=== PATIENT | female | born 1985 | race Caucasian/White ===

== ENCOUNTER 2017-06-10 18:01 | Emergency (ER) | payer MEDICAID ==
[2016-09-02 08:51] VITALS: BMI 26.1
[~2017-06-10 18:01] MED LIST: HYDROCODON-ACE1 EAC7 PO; IBUPROFEN800 MG PO; MULTI-DAY VITAM1 TAB PO; PERCOCET 5-3251 TAB PO
== END 2017-06-10 20:00 | disposition left against medical advice (07) ==
LOC: D.ER 18:01
DX: R07.9 Chest pain, unspecified (principal)

== ENCOUNTER 2018-03-05 06:49 | Day surgery (SDC) | payer MEDICAID ==
[~2018-03-05] VITALS: Ht 162.6 cm; Wt 99.8 kg
--- NOTE | ~2018-03-05 | OP ---
PATIENT NAME: ROQUE HAMEED MEDICAL RECORD: [id number] :86 LOCATION:D.OPS ADMISSION DATE: SURGEON: ESTRADA GARCIA MD DATE OF OPERATION: 03/05/2018 SURGEON: Estrada Garcia MD ANESTHESIA: MAC by Can Putnam CRNA. PREOPERATIVE DIAGNOSIS: Interstitial cystitis. POSTOPERATIVE DIAGNOSIS: Interstitial cystitis. PROCEDURES: Cystoscopy and intravesical Rimso-50 instillation. FINDINGS: Bladder inflammation with no bladder tumors. Single ureteral orifices bilaterally. SPECIMENS: None. ESTIMATED BLOOD LOSS: None. CLINICAL HISTORY: This is a 32-year-old female, who was found by her code number stamper to have a uterine descent and cystocele. She also has stress urinary incontinence. There is suprapubic discomfort as well as nocturia times 2 and daytime frequency q.1h. She has dyspareunia also. Her symptoms are suggestive of interstitial cystitis and therefore she is scheduled for cystoscopy. Once we get the bladder inflammation symptoms controlled, then we planned to perform a hysterectomy and cystocele repair in the future as well as a pubovaginal sling in conjunction with Dr. Ledesma. She is not allergic to any medication. She was given Ancef health information coder to the OR. DESCRIPTION OF PROCEDURE: The patient was given IV sedation. She was placed in the dorsal lithotomy position and prepped and draped. A 17-Emirati cystoscope with 30-degree lens was used for visualization. She had a severe bladder inflammation, but no bladder tumors were seen. In fact, during the cystoscopy, areas of the bladder started to bleed spontaneously. She did have gross hematuria already when I entered into the bladder with the scope. The bladder was emptied through the scope and then we inserted a 16-Emirati red rubber catheter. The 50 mL of Rimso solution were then instilled into the bladder and the catheter was removed, leaving the solution in the bladder. She will keep the solution in for at least 15 minutes and then void it out. I will see her in followup next week for her to have her second treatment. TRANSINT:[id number] Voice Confirmation ID: [id number] DOCUMENT ID: [id number] ESTRADA GARCIA MD at 1305 CC: [id number] DICTATION DATE: 03/05/18 0943 TRIPLE VALVE TESTER: 03/05/18 1123 [facility] [address] [place] [address]
[~2018-03-05 06:49] MED LIST changes: +CELEXA20 MG PO; +EZFE 200200 MG PO; +MELATONIN 3 MG1 TAB PO; +NEURONTIN600 MG PO; +TYLENOL W/CODEI1 TAB PO
[2018-03-05] MEDS ORDERED: MAGNESIUM OXID250 MG PO (07:28)
[2018-03-05] MEDS ORDERED: GALZIN25 MG PO (07:29)
[2018-03-05] MEDS ORDERED: POTASSIUM99 M1 PO (07:29)
[2018-03-05 07:37] VITALS: BP 135/87; Ht 162.6 cm; Wt 99.8 kg
[2018-03-05 08:42] LABS: HEMATOCRIT 36.9 % (36.0-48.0); HEMOGLOBIN 12.5 g/dL (12-16); MCH 31.6 pg (26.0-34.0); MCHC 33.9 g/dL (31.0-37.0); MCV 93.4 fL (80.0-100.0); MEAN PLATELET VOLUME 10.1 fL (7.4-10.4); RBC 3.95 10x6/uL (4.00-5.40); WBC 6.5 10x3/uL (4.8-10.8)
== END 2018-03-05 10:45 | disposition home or self-care (01) ==
LOC: D.OPS 06:49 → D.PAN 09:00 → D.OPS 09:00
PROVIDERS: Anesthesiology
DX: N30.10 Interstitial cystitis (chronic) without hematuria (principal); F17.200 Nicotine dependence, unspecified, uncomplicated; Z01.812 Encounter for preprocedural laboratory examination

== ENCOUNTER 2018-03-12 15:04 | Day surgery (SDC) | payer MEDICAID ==
[~2018-03-12] VITALS: Ht 162.6 cm; Wt 98.4 kg
--- NOTE | ~2018-03-12 | OP ---
PATIENT NAME: ROQUE HAMEED MEDICAL RECORD: [id number] :86 LOCATION:D.M2 D.2113 ADMISSION DATE:03/12/18 SURGEON: ESTRADA GARCIA MD DATE OF OPERATION: 03/12/2018 SURGEON: Estrada Garcia MD ANESTHESIA: General anesthesia, Samir Welch MD PREOPERATIVE DIAGNOSIS: Right renal colic due to a 6 mm right proximal ureteral stone with a 5 mm nonobstructive right lower pole renal stone. PROCEDURES: Cystoscopy, right retrograde pyelogram, right ureteroscopy and holmium laser lithotripsy, right ureteral stent insertion 6-Albanian x 22 cm with string attached. FINDINGS: Radiodense right proximal ureteral 6 mm stone and radiodense 5 mm right lower pole renal stone. SPECIMEN: Right ureteral stone fragment. ESTIMATED BLOOD LOSS: None. CLINICAL HISTORY: This is a 32-year-old female, who was initially evaluated for hematuria and pelvic pain. She had a cystoscopy, which showed diffuse bladder inflammation. Urine cytology was negative and urine cultures showed no growth. She was treated with intravesical Rimso for interstitial cystitis. She had relief of her bladder and pelvic pain symptoms for about 2 days until her menses started and then her pain started flaring up again. Four days ago, she developed acute right flank pain with nausea and vomiting and radiation down to the right lower quadrant. She saw me today in the office regarding this and I sent her for a stat CT of the abdomen and pelvis without contrast. This showed 2 stones in the right side, urinary system. There was a 5 mm nonobstructive renal stone in the lower pole. There was a 6-mm proximal ureteral stone. She elected to have the stone removed by ureteroscopy. I did tell her that we may have to perform ESWL on the 5-mm lower pole stone. She is not allergic to any medications and she was given Ancef leasing professional to the OR. DESCRIPTION OF PROCEDURE: The patient was given induction of general anesthesia. She was placed in the dorsal lithotomy position and prepped and draped. She has single ureteral orifices on each side when we performed cystoscopy. No bladder tumors were seen. She still has some bladder inflammation. On fluoroscopy, we identified some radiodensities. In order to confirm that this was indeed in the urinary system, we performed a retrograde pyelogram. The right ureteral orifice was intubated using a 5-Albanian open-ended ureteral catheter. Diluted contrast was injected and this confirmed that the radiodensities were indeed within the ureter and lower pole of the kidney. A Sensor wire was placed up the lumen of the open-ended ureteral catheter up to the renal pelvis. The ureteral catheter was then removed, leaving the wire in place. We then inserted an 18-Albanian x 4 cm long ureteral dilation balloon. The ureteral orifice was dilated using 12 atmospheres of pressure for a few seconds. The balloon was then deflated and completely removed. The cystoscope was removed, leaving the wire in place. We then used the rigid ureteroscope. We went right up to the stone following the wire. The stone has a curvilinear aspect to it, so although it is 6 mm in length, it has a larger cross section OPERATIVE REPORT [id number] ROQUE HAMEED than we expect. We attempted to put a 0-tip 1.9-Albanian basket around it. We did catch the stone, but we could not get it past the ureteral edema, which was holding it in place. I therefore decided to push it back proximally to try to use a laser fiber to break it up while we are trying to dislodge the basket and I was pushing the stone with the nose of the scope to the more proximal location where it is more hydronephrotic, the curved back end of the stone actually perforated through the posterior wall of the bladder into the retroperitoneum. The basket became dislodged. I attempted again to basket it and it was still too large to pull down. The basket was again released. We put in the holmium laser fiber and did break up the stone. However, we only managed to catch one of the smaller fragments and sent this to pathology as a specimen. We went back up with the scope after catching the small fragment to retrieve the rest of the fragments. They had been disbursed by our irrigation. It was not worthwhile to continue searching the retroperitoneum for the stone fragments. I therefore backloaded the wire onto the cystoscope and over the wire, we inserted a 6-Albanian x 22 cm ureteral stent. Once the stent was in correct position, the wire was entirely withdrawn. The distal end of stent was pushed into the bladder using a pusher. The bladder was then emptied through the cystoscope and the scope was removed. The string on the distal end of stent was maintained. It is taped to the suprapubic area using a small piece of Tegaderm. The ureteral perforation site will heal spontaneously with the stent. We will make arrangements to have the radiodense 5 mm right lower pole renal stone treated with ESWL in the future. TRANSINT:[id number] Voice Confirmation ID: [id number] DOCUMENT ID: [id number] ESTRADA GARCIA MD at 1109 CC: [id number] DICTATION DATE: 03/12/181930 MUNICIPAL MAINTENANCE WORKER: 03/12/18 2343 [facility] IN 03/12/18 [facility] [address] [place] [address]
[~2018-03-12 15:04] MED LIST changes: +GALZIN25 MG PO; +MAGNESIUM OXID250 MG PO; +POTASSIUM99 M1 PO
[2018-03-12 15:41] VITALS: BP 126/93; Ht 162.6 cm; Wt 98.4 kg
[2018-03-12 16:22] LABS: HCG URINE NEGATIVE (NEGATIVE)
[2018-03-12 17:15] LABS: HEMATOCRIT 36.5 % (36.0-48.0); HEMOGLOBIN 12.3 g/dL (12-16); MCH 31.7 pg (26.0-34.0); MCHC 33.7 g/dL (31.0-37.0); MCV 94.1 fL (80.0-100.0); MEAN PLATELET VOLUME 10.2 fL (7.4-10.4); RBC 3.88 10x6/uL (4.00-5.40); WBC 8.6 10x3/uL (4.8-10.8)
[2018-03-12 17:49] LABS: ANION GAP 15.1 mmol/L (8-16); CALCIUM 8.3 mg/dL (8.5-10.1); CARBON DIOXIDE 24.1 mmol/L (21.0-32.0); CREATININE - SERUM 1.1 mg/dL (0.6-1.3); POTASSIUM - SERUM 4.2 mmol/L (3.5-5.1)
[2018-03-24 17:13] LABS: CALCULI - CA OXALATE DIHYDRATE 10 % (()); CALCULI - CA OXALATE MONOHYDR 88 % (()); CALCULI - COLOR Blue (()); CALCULI - COMMENT Note: (()); CALCULI - WEIGHT <1.0 mg (())
== END 2018-03-12 22:11 | disposition home or self-care (01) ==
LOC: OBSVTIME → D.OPS 15:04 → OBSVTIME 19:33 → D.M2 19:33 → D.OPS 19:33 → D.M2 22:11 → D.OPS 22:11 → D.M2 22:11
PROVIDERS: Anesthesiology; Urology
DX: N20.2 Calculus of kidney with calculus of ureter (principal); Z72.0 Tobacco use; R31.9 Hematuria, unspecified

== ENCOUNTER 2018-03-19 09:30 | Day surgery (SDC) | payer MEDICAID ==
[~2018-03-19] VITALS: Ht 162.6 cm; Wt 99.8 kg
--- NOTE | ~2018-03-19 | OP ---
PATIENT NAME: ROQUE HAMEED MEDICAL RECORD: [id number] :86 LOCATION:CALI ADMISSION DATE: SURGEON: SIN GARCIA MD DATE OF OPERATION: 03/19/2018 SURGEON: Sin Garcia MD ANESTHESIA: MAC by Tigist Lee CRNA. DIAGNOSIS: Right lower pole renal stone, 5 mm. FINDINGS: Radiodense stone. PROCEDURE: Right ESWL times 3000 shocks. BLOOD LOSS: None. CLINICAL HISTORY: This is a 32-year-old female, who was found to have right renal colic due to 2 stones. There was a 6-mm stone in the proximal right ureter and a 5 mm nonobstructive renal stone in the lower pole. She had ureteroscopy to treat the 6-mm stone. This stone ended up perforating the ureter in the posterior wall and getting lost in the retroperitoneum. She has the right ureteral stent in place. Now, she comes to have the right renal stone treated with ESWL. She was given perioperative antibiotics. DESCRIPTION OF PROCEDURE: The patient was placed on the treatment table and the stone was targeted in 2 planes. 3000 shocks were given to the stone and that was seen to break up. The patient will be going home with a prescription for Beverly 5/325 times 30 tablets with no refills. She already has a script for Flomax at home. I will see her in followup in 1 week's time with a KUB. If the KUB shows that the stone has gone, then we can remove the ureteral stents. TRANSINT:[id number] Voice Confirmation ID: [id number] DOCUMENT ID: [id number] SIN GARCIA MD at 1313 CC: [id number] DICTATION DATE: 03/19/18 1223 ELASTIC ATTACHER COVERSTITCH: 03/19/18 1231 [facility] [id number] [place] [address]
[2018-03-19] MEDS ORDERED: FLOMAX0.4 MG PO (10:42)
[2018-03-19] MEDS ORDERED: HYDROCODON-ACE1 EAC7 PO (10:42)
[2018-03-19] MEDS ORDERED: CYCLOBENZAPRINE10 MG PO (10:43)
[2018-03-19 10:45] VITALS: BP 120/77; Ht 162.6 cm; Wt 99.8 kg
[2018-03-19 10:55] LABS: HCG URINE NEGATIVE (NEGATIVE)
== END 2018-03-19 14:00 | disposition home or self-care (01) ==
LOC: D.OPS 09:30
PROVIDERS: Urology
DX: N20.0 Calculus of kidney (principal); Z01.812 Encounter for preprocedural laboratory examination

== ENCOUNTER → 2018-03-25 11:09 | Outpatient (CLI) | payer MEDICAID ==
[2018-03-19 10:45] VITALS: BMI 37.8
[~2018-03-25 11:09] MED LIST changes: +CYCLOBENZAPRINE10 MG PO; +FLOMAX0.4 MG PO
== END | disposition home or self-care (01) ==
LOC: D.RAD 11:09
DX: N20.0 Calculus of kidney (principal)

== ENCOUNTER 2018-09-11 07:00 | Inpatient (IN) | payer MEDICAID ==
[2018-09-09 15:38] LABS: BASOPHILS 0.2 % (0-2); EOSINOPHILS 0.6 % (0-7); HEMATOCRIT 38.9 % (36.0-48.0); HEMOGLOBIN 13.7 g/dL (12-16); IMMATURE GRANULOCYTES 0.4 % (0-5); LYMPHOCYTES 15.8 % (15-50); MCH 32.3 pg (26.0-34.0); MCHC 35.2 g/dL (31.0-37.0); MCV 91.7 fL (80.0-100.0); MEAN PLATELET VOLUME 9.9 fL (7.4-10.4); MONOCYTES 4.7 % (2-11); NEUTROPHILS 78.3 % (40-80); PLATELET COUNT 198 10x3/uL (130-400); RBC 4.24 10x6/uL (4.00-5.40); RDW 12.5 % (11.5-14.5); WBC 9.9 10x3/uL (4.8-10.8)
[2018-09-09 15:46] LABS: CALC OSMOLALITY 276 mosm/kg (275-300); CALCIUM 9.1 mg/dL (8.5-10.1); CARBON DIOXIDE 22.4 mmol/L (21.0-32.0); CHLORIDE - SERUM 103 mmol/L (98-107); CREATININE - SERUM 0.7 mg/dL (0.6-1.3); GLUCOSE 112 mg/dL (74-106); SODIUM 138 mmol/L (136-145); UREA NITROGEN 12 mg/dL (7-18); eGFR NON AFRICAN AMERICAN > 90 mL/min (90-120)
[~2018-09-11] VITALS: Ht 163.8 cm; Wt 86.4 kg
--- NOTE | ~2018-09-11 | OP ---
PATIENT NAME: ROQUE HAMEED MEDICAL RECORD: [id number] :86 LOCATION:HyunNINOSKA [id number] ADMISSION DATE:09/11/18 SURGEON: SIN GARCIA MD DATE OF OPERATION: 09/11/2018 SURGEON: Sin Garcia MD ANESTHESIA: General anesthesia. Marisabel Romano CRNA. DIAGNOSES: Female stress urinary incontinence and cystocele Gary-Walker grade II. PROCEDURES: 1. Cystoscopy, bilateral retrograde pyelograms. 2. Pubovaginal sling with mesh - [employer] Obtryx. 3. Cystocele repair with mesh, [employer] Uphold. FINDINGS: On cystoscopy, single ureteral orifices bilaterally. No bladder tumors. No bladder injury. There is some bladder inflammation noted. On bilateral retrograde pyelograms, normal ureters bilaterally with no signs of injury or stricture. CLINICAL HISTORY: This is a 32-year-old female, A0, whom I have treated for kidney stones as well as interstitial cystitis. Her initial complaint when I first saw her was of stress urinary incontinence as well as a dropped bladder. She also has issues with heavy menses. Dr. Ledesma had already performed an endometrial ablation, but she still continues to have very heavy menses from which she has become anemic. She wanted to have the bladder repaired with a pubovaginal sling and cystocele repair. I thought it would be best for her to combine this with Dr. Ledesma's hysterectomy so that she would only have to undergo anesthesia once. When I initially saw her back in July 08 of this year, I left the choice of graft material up to the patient. The choice was between polypropylene mesh or some type of biological fascia. She eventually chose to use mesh. Earlier today, Dr. Ledesma performed an abdominal hysterectomy on the patient. Once he was done, he asked for me to come in to do my part of the surgery. The patient was already asleep and she was in stirrups in lithotomy position. She has an indwelling Johns catheter. Dr. Ledesma asked for me to check her ureters to be sure that they were intact. Therefore, as my first step, I decided to perform bilateral retrograde pyelograms. I did not want to place any mesh graft if there is any potential ureteral injury. DESCRIPTION OF PROCEDURE: The patient's Johns catheter was removed. We used a 20-Jamaican cystoscope with 30-degree lens. The patient is on a table that cannot be used with fluoroscopy. Therefore, we put the portable x-ray plate underneath the patient. Using the portable x-ray, we were able to obtain views. The right ureteral orifice was intubated with an open-ended ureteral catheter and 10 cc of diluted contrast was injected. The ureteral catheter was then removed and a KUB was obtained. This showed contrast from the renal pelvis all the way down to the UV junction and into the bladder with no evidence of a stricture or distortion of the ureter in any way. The same procedure was repeated on the left ureter and again the left ureter was completely intact. At this point, we covered the patient with a new drape and proceeded with the pubovaginal sling and cystocele repair. A weighted speculum was placed to hold down the posterior vaginal wall. The Johns catheter was put back into the bladder. A #1 nylon suture was used to retract the labia majora laterally. These were anchored to OPERATIVE REPORT [id number] ROQUE HAMEED M the medial thighs. The patient's cystocele could be seen readily. Also, I could see the vaginal cuff from the hysterectomy. The anterior vaginal wall was infiltrated with Pitressin solution. Twenty units of Pitressin was dissolved in 100 mL of injectable normal saline. This was injected into the anterior vaginal wall for hydrodissection. A transverse incision was then made using a #15 scalpel at the level of the bladder neck. Metzenbaum scissors were then used to dissect the anterior vaginal wall from the undersurface of the bladder. Extending laterally, we took down the pubocervical ligaments. Extending anteriorly and distally, we cleared the space from the obturator membrane. Posteriorly, the presacral space was cleared with blunt dissection using the finger. This cleared the sacrospinous ligaments and their insertion on to the ischial spine. The patient had fairly vigorous bleeding throughout this dissection. No obvious arterial bleeding was noted. I then attached the suspensory sutures for the [employer] Uphold cystocele repair mesh. The Capio suture hammer driver was placed through the sacrospinous ligament. I palpated for the ischial spine and then moved 1 cm medially. The graft arm was loaded onto the suture hammer driver and the graft arm was passed through the sacrospinous ligament using the Capio suture hammer driver. Once the graft arm had been passed through by tugging on the suture, I could feel that a strong suspensory anchorage was obtained. This was performed on both sides. I then palpated the insertion point on the sacrospinous ligaments to be sure that no other tissues were involved. I specifically wanted to be sure that the bladder or ureter was not attached to the graft material. The graft material on both sides was completely clear of any other extraneous material except where it entered through the sacrospinous ligaments on both sides. The graft arms were then gently pulled down. I tacked the apex of the graft at the cervical cuff level using a 3-0 Vicryl simple interrupted suture. The other end of the graft at the bladder neck was tacked with a 3-0 Vicryl simple interrupted suture. These 2 sutures are to prevent the graft from curling up into a little role, but instead keeps it laid out flat underneath the bladder. We then landmarked for the pubovaginal sling. The landmark is the insertion of the adductor longus muscle onto the descending pubic ramus. The area inferior to the muscle was palpated lateral to the descending pubic ramus and marked with a marking pen. A small stab incision was made here on each side. The trocars of the [employer] Uphold system were then passed through in a retropubic fashion to the anterior apex of the obturator membrane. The tips of the needles then exited through the vaginal dissection space. The ends of the Obtryx graft was then attached to each of the needle tips and the needles were withdrawn to result in transobturator passage of the pubovaginal sling graft. The graft has a tab to outline the middle portion of the graft. This tab was placed right underneath the mid urethra. At this point, the Johns catheter was removed. Cystoscopy was performed. No bladder injury was seen anywhere. The bladder was then filled through the cystoscope. Normal saline was used. By applying manual suprapubic pressure, I could elicit leakage per the urethra. Gradually we increased the tension on the pubovaginal sling and eventually no further leakage of urine per the urethra was seen with manually applied suprapubic pressure. At this point, the clear plastic sheath material on all of the graft arms was removed. The pubovaginal sling graft arms were cut where they exited the skin in the groin area. The graft arms where the cystocele repair were also cut shorter. The wound was irrigated out and the vagina was closed using running 4-0 Monocryl. The Johns catheter was placed back into the bladder and put to bag drainage. The groin incisions were closed with Dermabond. The patient will be admitted to the hospital as she is post hysterectomy. I will have her OPERATIVE REPORT [id number] ROQUE HAMEED vaginal packing removed in the near future. TRANSINT:[id number] Voice Confirmation ID: [id number] DOCUMENT ID: [id number] SIN GARCIA MD at 2111 CC: [id number] DICTATION DATE: 09/11/18 1558 GUIDE DOG INSTRUCTOR: 09/11/18 1720 ADM IN [facility] [address] [place] [address]
[~2018-09-11 07:00] MED LIST changes: +CETIRIZINE HCL5 M1 PO
[2018-09-11 07:27] VITALS: BP 122/92
[2018-09-11 07:54] LABS: HCG URINE NEGATIVE (NEGATIVE)
[2018-09-11 16:50] VITALS: BP 140/98
[2018-09-11 17:04] LABS: BASOPHILS 0.1 % (0-2); EOSINOPHILS 0 % (0-7); HEMATOCRIT 31.3 % (36.0-48.0); IMMATURE GRANULOCYTES 0.7 % (0-5); LYMPHOCYTES 6.8 % (15-50); MCH 31.7 pg (26.0-34.0); MCHC 34.2 g/dL (31.0-37.0); MCV 92.6 fL (80.0-100.0); MEAN PLATELET VOLUME 9.9 fL (7.4-10.4); MONOCYTES 2.4 % (2-11); PLATELET COUNT 220 10x3/uL (130-400); RDW 12.5 % (11.5-14.5)
[2018-09-11 17:05] LABS: HEMOGLOBIN 10.7 g/dL (12-16); RBC 3.38 10x6/uL (4.00-5.40); WBC 17.4 10x3/uL (4.8-10.8)
[2018-09-11 17:25] LABS: CALC OSMOLALITY 284 mosm/kg (275-300); CHLORIDE - SERUM 105 mmol/L (98-107); CREATININE - SERUM 0.8 mg/dL (0.6-1.3); POTASSIUM - SERUM 3.7 mmol/L (3.5-5.1); SODIUM 141 mmol/L (136-145); UREA NITROGEN 8 mg/dL (7-18); eGFR NON AFRICAN AMERICAN 89 mL/min (90-120)
[2018-09-11 17:44] LABS: GLUCOSE 207 mg/dL (74-106)
[2018-09-11 19:04] VITALS: BP 135/72
[2018-09-12] VITALS (12 sets, daily range): BP systolic 121–144; BP diastolic 72–98; Ht 163.8 cm; Wt 86.4 kg
[2018-09-12 07:06] LABS: BASOPHILS 0.1 % (0-2); EOSINOPHILS 0 % (0-7); IMMATURE GRANULOCYTES 0.7 % (0-5); LYMPHOCYTES 11.2 % (15-50); MCH 32.1 pg (26.0-34.0); MCHC 35.1 g/dL (31.0-37.0); MCV 91.5 fL (80.0-100.0); MEAN PLATELET VOLUME 9.9 fL (7.4-10.4); MONOCYTES 9.1 % (2-11); NEUTROPHILS 78.9 % (40-80); PLATELET COUNT 220 10x3/uL (130-400); RDW 12.7 % (11.5-14.5)
[2018-09-12 07:10] LABS: HEMATOCRIT 22.5 % (36.0-48.0); HEMOGLOBIN 7.9 g/dL (12-16); RBC 2.46 10x6/uL (4.00-5.40); WBC 12.6 10x3/uL (4.8-10.8)
[2018-09-12 07:16] LABS: CALC OSMOLALITY 279 mosm/kg (275-300); CALCIUM 7.8 mg/dL (8.5-10.1); CARBON DIOXIDE 23.1 mmol/L (21.0-32.0); CHLORIDE - SERUM 105 mmol/L (98-107); CREATININE - SERUM 0.7 mg/dL (0.6-1.3); POTASSIUM - SERUM 3.9 mmol/L (3.5-5.1); SODIUM 139 mmol/L (136-145); UREA NITROGEN 9 mg/dL (7-18); eGFR NON AFRICAN AMERICAN > 90 mL/min (90-120)
[2018-09-12 07:17] LABS: GLUCOSE 144 mg/dL (74-106)
[2018-09-12 15:04] LABS: BASOPHILS 0.1 % (0-2); EOSINOPHILS 0.3 % (0-7); HEMATOCRIT 26.9 % (36.0-48.0); HEMOGLOBIN 9.2 g/dL (12-16); IMMATURE GRANULOCYTES 0.5 % (0-5); LYMPHOCYTES 17.5 % (15-50); MCH 31.7 pg (26.0-34.0); MCHC 34.2 g/dL (31.0-37.0); MCV 92.8 fL (80.0-100.0); MEAN PLATELET VOLUME 9.4 fL (7.4-10.4); MONOCYTES 10.6 % (2-11); RDW 13.2 % (11.5-14.5); WBC 9.5 10x3/uL (4.8-10.8)
[2018-09-12 15:05] LABS: PLATELET COUNT 136 10x3/uL (130-400)
[2018-09-12 22:59] LABS: BASOPHILS 0.1 % (0-2); EOSINOPHILS 0.5 % (0-7); HEMATOCRIT 26.8 % (36.0-48.0); HEMOGLOBIN 9.3 g/dL (12-16); IMMATURE GRANULOCYTES 0.7 % (0-5); LYMPHOCYTES 23.1 % (15-50); MCH 31.6 pg (26.0-34.0); MCHC 34.7 g/dL (31.0-37.0); MCV 91.2 fL (80.0-100.0); MEAN PLATELET VOLUME 9.6 fL (7.4-10.4); MONOCYTES 9.2 % (2-11); NEUTROPHILS 66.4 % (40-80); PLATELET COUNT 118 10x3/uL (130-400); RBC 2.94 10x6/uL (4.00-5.40); RDW 13.5 % (11.5-14.5); WBC 9.1 10x3/uL (4.8-10.8)
[2018-09-13 01:30] VITALS: BP 119/73
[2018-09-13 01:51] LABS: BASOPHILS 0.1 % (0-2); EOSINOPHILS 0.6 % (0-7); HEMATOCRIT 26.2 % (36.0-48.0); IMMATURE GRANULOCYTES 0.8 % (0-5); LYMPHOCYTES 25.9 % (15-50); MCH 31.3 pg (26.0-34.0); MCHC 34.4 g/dL (31.0-37.0); MEAN PLATELET VOLUME 9.8 fL (7.4-10.4); MONOCYTES 7.8 % (2-11); NEUTROPHILS 64.8 % (40-80); PLATELET COUNT 125 10x3/uL (130-400); RBC 2.88 10x6/uL (4.00-5.40); RDW 13.4 % (11.5-14.5); WBC 8.5 10x3/uL (4.8-10.8)
[2018-09-13 04:47] VITALS: BP 125/80
[2018-09-13 05:30] LABS: BASOPHILS 0.2 % (0-2); EOSINOPHILS 0.7 % (0-7); HEMATOCRIT 26.6 % (36.0-48.0); HEMOGLOBIN 9.2 g/dL (12-16); IMMATURE GRANULOCYTES 0.7 % (0-5); LYMPHOCYTES 24.7 % (15-50); MCH 31.5 pg (26.0-34.0); MCHC 34.6 g/dL (31.0-37.0); MCV 91.1 fL (80.0-100.0); MEAN PLATELET VOLUME 10.2 fL (7.4-10.4); MONOCYTES 7.3 % (2-11); NEUTROPHILS 66.4 % (40-80); PLATELET COUNT 128 10x3/uL (130-400); RBC 2.92 10x6/uL (4.00-5.40); RDW 13.7 % (11.5-14.5); WBC 9.4 10x3/uL (4.8-10.8)
[2018-09-13 05:44] LABS: APTT 27.1 SECONDS (22.8-39.4); INR 1.2 (0.85-1.17); PROTIME 14.8 SECONDS (11.6-15.0)
[2018-09-13 07:35] VITALS: BP 125/68
[2018-09-13 08:23] VITALS: BP 112/66
[2018-09-13] MEDS ORDERED: OXYCODONE-APAP1 TAB PO (17:00)
[2018-09-13] MEDS ORDERED: MOTRIN600 MG PEG (17:01)
[2018-09-28] MEDS ORDERED: OXYCODONE-APAP1 TAB PO (13:41)
[2018-09-28] MEDS ORDERED: POTASSIUM99 M1 PO (13:42)
[2018-09-28] MEDS ORDERED: EZFE 200200 MG PO (13:43)
== END 2018-09-13 18:25 | disposition home or self-care (01) | DRG 748 ==
LOC: D.SDCHOLD 07:00 → D.LD 16:24
PROVIDERS: Obstetrics & Gynecology; Urology
PROC: 0TSD4ZZ Reposition Urethra, Percutaneous Endoscopic Approach (ICD-10-PCS; principal; 2018-09-11 09:00)
PROC: 0JUC3JZ Supplement of Pelvic Region Subcutaneous Tissue and Fascia with Synthetic Substitute, Percutaneous Approach (ICD-10-PCS; 2018-09-11 09:00)
PROC: BT141ZZ Fluoroscopy of Kidneys, Ureters and Bladder using Low Osmolar Contrast (ICD-10-PCS; 2018-09-11 09:00)
PROC: BT141ZZ Fluoroscopy of Kidneys, Ureters and Bladder using Low Osmolar Contrast (ICD-10-PCS; 2018-09-11 09:00)
DX: N92.0 Excessive and frequent menstruation with regular cycle (principal); K56.7 Ileus, unspecified; D62 Acute posthemorrhagic anemia; N20.1 Calculus of ureter; F17.200 Nicotine dependence, unspecified, uncomplicated; R10.2 Pelvic and perineal pain; N39.3 Stress incontinence (female) (male); N81.10 Cystocele, unspecified; N94.89 Other specified conditions associated with female genital organs and menstrual cycle; N80.0 Endometriosis of uterus

== ENCOUNTER 2018-09-20 13:40 | Emergency (ER) | payer MEDICAID ==
[~2018-09-20] VITALS: Ht 163.8 cm; Wt 97.7 kg
[~2018-09-20 13:40] MED LIST changes: +MOTRIN600 MG PEG; +OXYCODONE-APAP1 TAB PO
[2018-09-20 13:49] VITALS: Ht 163.8 cm; Wt 97.7 kg
[2018-09-20 14:18] LABS: BASOPHILS 0.1 % (0-2); EOSINOPHILS 1.4 % (0-7); HEMATOCRIT 35.9 % (36.0-48.0); HEMOGLOBIN 12.3 g/dL (12-16); IMMATURE GRANULOCYTES 0.9 % (0-5); LYMPHOCYTES 14.6 % (15-50); MCH 31.6 pg (26.0-34.0); MCHC 34.3 g/dL (31.0-37.0); MCV 92.3 fL (80.0-100.0); MEAN PLATELET VOLUME 9.5 fL (7.4-10.4); MONOCYTES 5.9 % (2-11); NEUTROPHILS 77.1 % (40-80); RBC 3.89 10x6/uL (4.00-5.40); RDW 13.1 % (11.5-14.5); WBC 10.2 10x3/uL (4.8-10.8)
[2018-09-20 14:19] LABS: PLATELET COUNT 298 10x3/uL (130-400)
[2018-09-20 14:34] LABS: ALBUMIN 3.2 g/dL (3.4-5.0); ALKALINE PHOSPHATASE 104 U/L (46-116); ALT (SGPT) 52 U/L (10-68); BILIRUBIN - TOTAL 0.94 mg/dL (0.2-1.3); CALC OSMOLALITY 277 mosm/kg (275-300); CALCIUM 9.7 mg/dL (8.5-10.1); CARBON DIOXIDE 24.6 mmol/L (21.0-32.0); CHLORIDE - SERUM 102 mmol/L (98-107); CREATININE - SERUM 0.7 mg/dL (0.6-1.3); GLUCOSE 129 mg/dL (74-106); POTASSIUM - SERUM 3.6 mmol/L (3.5-5.1); SODIUM 138 mmol/L (136-145); UREA NITROGEN 12 mg/dL (7-18); eGFR NON AFRICAN AMERICAN > 90 mL/min (90-120)
[2018-09-20 15:04] LABS: APPEARANCE CLOUDY (CLEAR); BILIRUBIN NEGATIVE (NEGATIVE); COLOR RED (YELLOW); GLUCOSE NEGATIVE (NEGATIVE); KETONE NEGATIVE (NEGATIVE); NITRITE NEGATIVE (NEGATIVE); PROTEIN 1+ mg/dL (NEGATIVE); UROBILINOGEN NORMAL (NORMAL)
[2018-09-20 15:05] LABS: BACTERIA MODERATE /hpf (NONE SEEN); WHITE CELLS - URINE 0-5 /hpf (0-5)
[2018-09-20 18:29] VITALS: BP 114/60
[2018-09-28] MEDS ORDERED: OXYCODONE-APAP1 TAB PO (13:41)
[2018-09-28] MEDS ORDERED: POTASSIUM99 M1 PO (13:42)
[2018-09-28] MEDS ORDERED: EZFE 200200 MG PO (13:43)
== END 2018-09-20 18:30 | disposition home or self-care (01) ==
LOC: D.ER 13:40
PROVIDERS: Emergency Medicine
DX: N99.820 Postprocedural hemorrhage of a genitourinary system organ or structure following a genitourinary system procedure (principal); F17.200 Nicotine dependence, unspecified, uncomplicated

== ENCOUNTER 2018-09-30 09:55 | Day surgery (SDC) | payer MEDICAID ==
[2018-09-28 14:14] LABS: BASOPHILS 0.4 % (0-2); HEMATOCRIT 34.6 % (36.0-48.0); HEMOGLOBIN 11.6 g/dL (12-16); IMMATURE GRANULOCYTES 0.5 % (0-5); LYMPHOCYTES 30.2 % (15-50); MCH 30.7 pg (26.0-34.0); MCHC 33.5 g/dL (31.0-37.0); MCV 91.5 fL (80.0-100.0); MEAN PLATELET VOLUME 8.8 fL (7.4-10.4); MONOCYTES 7.8 % (2-11); NEUTROPHILS 57.1 % (40-80); PLATELET COUNT 341 10x3/uL (130-400); RBC 3.78 10x6/uL (4.00-5.40); RDW 12.6 % (11.5-14.5); WBC 7.3 10x3/uL (4.8-10.8)
[~2018-09-30] VITALS: Ht 162.6 cm; Wt 97.5 kg
[2018-09-30 10:34] VITALS: BP 115/76; BMI 37.0
[2018-09-30 12:56] VITALS: Ht 162.6 cm; Wt 97.5 kg
--- NOTE | 2018-11-23 14:35 | OP ---
PATIENT NAME: ROQUE HAMEED MEDICAL RECORD: [id number] :86 LOCATION:D.OPS ADMISSION DATE: SURGEON: REDDY LEDESMA MD DATE OF OPERATION: 09/30/2018 PREOPERATIVE DIAGNOSES: 1. Vaginal bleeding, status post hysterectomy. 2. Superficial separation of Pfannenstiel skin incision. PROCEDURES: Approximation of vaginal cuff and approximation of Pfannenstiel skin incision. SURGEON: Reddy Ledesma ESTIMATED BLOOD LOSS: Minimal. INTRAVENOUS FLUIDS: Per anesthesia record. ANESTHESIA: General endotracheal. SPECIMENS: None. COMPLICATIONS: None apparent. FINDINGS: 1. Pfannenstiel skin incision with skin separation on the left lateral aspect, approximately 5 cm, with intact underlying fascial tissue. 2. Small area of bleeding from the vaginal cuff, which was found to be intact. PROCEDURE IN DETAIL: The patient was taken to the operating room, where general anesthesia was achieved without any difficulty. The patient was then prepped and draped in normal sterile fashion in the [facility]. The bladder was drained of approximately 100 cc of clear yellow urine. A speculum was then placed in the vagina. The vaginal cuff was identified and grasped at its most lateral edges using Allis clamp bilaterally. The incision was probed and no obvious opening was noted. Some small bleeding was noted on the right aspect of the incision. A #0 Vicryl suture was then used to reinforce the vaginal cuff in several areas using [id number] suturing. No bleeding was noted on the vaginal cuff status post suturing. The patient was then redraped and the surgeon regowned and attention was then turned to the abdomen, where, after proper prepping and cleaning of the incision, the Pfannenstiel skin separation was approximated using 3-0 Monocryl in a running subcutaneous fashion. Dermabond was then placed over the incision. The patient tolerated both portions of the procedure well and was transferred to postanesthesia recovery stable without incident. TRANSINT:[id number] Voice Confirmation ID: [id number] DOCUMENT ID: [id number] OPERATIVE REPORT [id number] YOSEPHALEXANDRAROQUE M REDDY LEDESMA MD at 1435 CC: [id number] DICTATION DATE: 11/21/18 0631 SHANK THREADER: 11/21/18 1244 [facility] 09/30/18 [facility] [address] [place] [address]
== END 2018-09-30 16:00 | disposition home or self-care (01) ==
LOC: D.OPS 09:55 → D.PAN 12:00 → D.OPS 16:00
PROVIDERS: Obstetrics & Gynecology
DX: T81.31XA Disruption of external operation (surgical) wound, not elsewhere classified, initial encounter (principal); T81.32XA Disruption of internal operation (surgical) wound, not elsewhere classified, initial encounter; Z01.812 Encounter for preprocedural laboratory examination

== ENCOUNTER → 2019-03-24 10:18 | Outpatient (CLI) | payer MEDICAID ==
[2018-09-30 12:56] VITALS: BMI 36.4
[2019-03-24 17:16] LABS: APPEARANCE CLEAR (CLEAR); BILIRUBIN NEGATIVE (NEGATIVE); COLOR YELLOW (YELLOW); GLUCOSE NEGATIVE (NEGATIVE); KETONE NEGATIVE (NEGATIVE); NITRITE NEGATIVE (NEGATIVE); PROTEIN NEGATIVE (NEGATIVE); SPECIFIC GRAVITY 1.015 (1.005-1.020); UROBILINOGEN NORMAL (NORMAL)
[2019-03-24 17:18] LABS: BACTERIA MODERATE /hpf (NONE SEEN); EPITHELIAL CELLS 0-5 /hpf (0-5); RED CELLS - URINE 0-5 /hpf (0-5); WHITE CELLS - URINE 0-5 /hpf (0-5)
== END | disposition home or self-care (01) ==
LOC: D.RAD 10:18
PROVIDERS: ATTEND Urology
DX: Z87.442 Personal history of urinary calculi (principal)

== ENCOUNTER → 2019-03-26 13:25 | Outpatient (CLI) | payer MEDICAID ==
[2018-09-30 12:56] VITALS: BMI 36.4
== END | disposition home or self-care (01) ==
LOC: D.CT 13:25
PROVIDERS: ATTEND Urology
DX: N20.0 Calculus of kidney (principal)

== ENCOUNTER 2019-04-13 05:33 | Day surgery (SDC) | payer MEDICAID ==
[~2019-04-13 05:33] MED LIST changes: +MOBIC7.5 MG PO; +TENORMIN25 MG PO; +ZOLOFT50 MG PO
[2019-04-13 05:53] LABS: HEMATOCRIT 37.8 % (36.0-48.0); MCH 32.1 pg (26.0-34.0); MCHC 34.4 g/dL (31.0-37.0); MCV 93.3 fL (80.0-100.0); MEAN PLATELET VOLUME 10.2 fL (7.4-10.4); RBC 4.05 10x6/uL (4.00-5.40); WBC 6.7 10x3/uL (4.8-10.8)
[2019-04-13] MEDS ORDERED: TYLENOL W/CODEI1 TAB PO (06:23)
[2019-04-13] MEDS ORDERED: MULTIVITAMIN PO (06:26)
[2019-04-13 06:58] VITALS: BP 105/68; BMI 37.3
--- NOTE | 2019-04-13 09:45 | OP ---
PATIENT NAME: ROQUE HAMEED MEDICAL RECORD: [id number] :86 LOCATION:D.OPS ADMISSION DATE: SURGEON: ESTRADA GARCIA MD DATE OF OPERATION: 04/13/2019 SURGEON: Estrada Garcia MD ANESTHESIA: TIVA by Dr. Samir Welch. DIAGNOSIS: Interstitial cystitis. PROCEDURES: Cystoscopy, hydrodistention of the bladder, and the intravesical Rimso instillation. FINDINGS: Single ureteral orifices bilaterally. No bladder tumors. Diffuse bladder inflammation. BLOOD LOSS: None. CLINICAL HISTORY: This is a 33-year-old female, who has a history of interstitial cystitis, which was diagnosed in February of 2018. Her severe bladder pain has now returned and she is using hydrocodone for the pain. She has urinary frequency every 2 hours and suprapubic pain going into the vulva. There is dyspareunia also. We are performing cystoscopy, hydrodistention and intravesical Rimso instillation. She has no medication allergies. She was given Ancef simonizer to the OR. DESCRIPTION OF PROCEDURE: The patient was given IV sedation. She was placed into lithotomy position and prepped and draped. A 17-Spanish cystoscope with 30-degree lens was used for visualization. Bladder inflammation was noted. The bladder was distended to 600 mL with saline. After holding the volume in for about 2 minutes, the bladder was emptied through the cystoscope sheath and the sheath was removed. A 16-Spanish red rubber catheter was then inserted into the bladder and 50 mL of Rimso solution was instilled into the bladder through the catheter lumen. Once the Rimso solution was in the bladder, the catheter was removed, leaving the solution in the bladder. The patient will hold the solution in for 15 minutes and then void it out. We will see her in followup in 2 weeks' time to monitor her response. TRANSINT:[id number] Voice Confirmation ID: [id number] DOCUMENT ID: [id number] ESTRADA GARCIA MD at 0945 CC: [id number] DICTATION DATE: 04/13/19906 COMMERCIAL PRODUCER: 04/13/19 0938 REG [facility] [address] [place] [address]
--- NOTE | 2019-04-13 11:04 | NUR ---
1000 UP TO BATHROOM. AMBULATORY WITHOUT DIFFICULTY. VOIDED URINE. STATES @ THE END OF VOIDING, BURNING PAIN. BACK TO BED. IV DC'ED WITH CATH INTACT. & 400ML LTC. DRESSING. Fernanda LEAL R.N. 1012 DRESSED, AWAKE, & ALERT. GIVEN DISCHARGE INFORMATION INCLUDING: [facility], [facility] D/C INSTRUCTIONS, POST CYSTOSCOPY & RIMSO TREATMENT D/C ISNTRUCTIONS & RTC APPT,. PT VOICED UNDERSTANDING. TO PRIVATE CAR PER WHEELCHAIR BY THIS NURSE. HOME WITH DARIAN JAIN. Fernanda LEAL R.N.
== END 2019-04-13 10:12 | disposition home or self-care (01) ==
LOC: D.OPS 05:33 → D.PAN 13:45 → D.OPS 13:45
PROVIDERS: Anesthesiology; ATTEND Urology
DX: N30.10 Interstitial cystitis (chronic) without hematuria (principal); N94.10 Unspecified dyspareunia; Z01.812 Encounter for preprocedural laboratory examination

== ENCOUNTER → 2019-09-17 07:51 | Outpatient (CLI) | payer MEDICAID ==
[~2019-09-17 07:51] MED LIST changes: +MULTIVITAMIN PO
[2019-09-17 08:42] LABS: ALBUMIN 4.1 g/dL (3.4-5.0); BILIRUBIN - DIRECT 0.14 mg/dL (0.00-0.30); BILIRUBIN - INDIRECT 0.5 mg/dL (0.00-1.00); BILIRUBIN - TOTAL 0.64 mg/dL (0.2-1.3); PROTEIN - SERUM 7.9 g/dL (6.4-8.2)
== END | disposition home or self-care (01) ==
LOC: D.US 07:51
PROVIDERS: ATTEND Internal Medicine Gastroenterology
DX: K76.0 Fatty (change of) liver, not elsewhere classified (principal)

== ENCOUNTER → 2019-11-23 11:17 | Outpatient (CLI) | payer MEDICAID ==
[~2019-11-23 11:17] MED LIST changes: +BACLOFEN10 MG PO; +CYMBALTA60 MG PO; +OMEPRAZOLE40 MG PO
== END | disposition home or self-care (01) ==
LOC: D.NM 11:17
PROVIDERS: ATTEND Internal Medicine Gastroenterology
DX: R10.9 Unspecified abdominal pain (principal); R11.2 Nausea with vomiting, unspecified

== ENCOUNTER 2019-11-30 05:30 | Day surgery (SDC) | payer MEDICAID ==
[2019-11-29 15:41] LABS: HEMOGLOBIN 17.1 g/dL (12-16); MCHC 34.9 g/dL (31.0-37.0); MCV 91.6 fL (80.0-100.0); MEAN PLATELET VOLUME 10.6 fL (7.4-10.4); RBC 5.35 10x6/uL (4.00-5.40); RDW 12.2 % (11.5-14.5); WBC 11.9 10x3/uL (4.8-10.8)
[~2019-11-30] VITALS: Ht 162.6 cm; Wt 87.5 kg
[2019-11-30] MEDS ORDERED: ATARAX 25 MG TA25 MG PO (06:19)
[2019-11-30 06:21] VITALS: BP 135/87; Ht 162.6 cm; Wt 87.5 kg
--- NOTE | 2019-11-30 06:42 | NUR ---
POSITIVE FOR LIFETIME SUICIDE SCREENING, ALREADY SEEING A COUNSELOR. DENIES FURTHER EVALUATION FROM MENTAL HEALTH.
--- NOTE | 2019-11-30 09:58 | OP ---
PATIENT NAME: ROQUE HAMEED MEDICAL RECORD: [id number] :86 LOCATION:[facility] ADMISSION DATE: SURGEON: SIN GARCIA MD DATE OF OPERATION: 11/30/2019 SURGEON: Sin Garcia MD ANESTHESIA: General anesthesia by Deyanira Mitchell CRNA. DIAGNOSIS: Vaginal mesh graft extrusion. PROCEDURE: Cystoscopy, removal of vaginal mesh sling. FINDINGS: Vaginal mesh graft extrusion on the left lateral corner of the anterior vaginal wall. On cystoscopy, there are single ureteral orifices bilaterally with no bladder injury or urethral injury. No bladder tumors were seen. SPECIMENS: Vaginal mesh graft. ESTIMATED BLOOD LOSS: Less than 50 mL. CLINICAL HISTORY: This is a 34-year-old female, G3, P3, A0, who has had a placement of a pubovaginal sling with mesh on August of 2018. Her stress urinary incontinence has recently come back. When she had a Pap test, her physician noticed "something blue" in the vaginal wall. Her also feels some "rough material" when they have sex. On examination, she had a vaginal mesh graft extrusion, about 1 cm in size in the left corner of the pubovaginal sling. She comes now to have the pubovaginal sling removed. The cystocele repair is intact. DESCRIPTION OF PROCEDURE: The patient was given induction of general anesthesia. She was then placed into dorsal lithotomy position. She was given ampicillin and sulbactam quality control head to the OR. A weighted speculum was placed to hold the posterior vaginal wall down. A Johns catheter was inserted into the bladder. A #1 nylon stay sutures were used to hold the labia majora laterally. These were anchored to the medial thighs. At the level of the graft extrusion, I placed a right angle clamp behind the graft, which was exposed. With this, I could bluntly dissect. I incised transversely along the distal edge of the graft. I could now place a hemostat right up to the left obturator membrane and with severe force I could disrupt the graft to pull it out. There is still a portion of the graft, which is embedded within the obturator membrane. In this way, I continued to disrupt the graft and pull out the graft until I encountered well-incorporated tissue on the right side, which I did not wish to disrupt. The graft material is sent to pathology for identification only. No further graft material, which was exposed was seen. The cystocele repair was completely intact and none of that graft was exposed at all. The wound was irrigated out with normal saline. Closure was with running 4-0 Monocryl. The Johns catheter was then removed. A 17-Spanish cystoscope was used and no bladder or urethral injury was seen. The bladder was then emptied through this catheter and the catheter was removed. Vaginal packing was placed and this will be removed prior to the patient going home today. TRANSINT:[id number] Voice Confirmation ID: [id number] DOCUMENT ID: [id number] OPERATIVE REPORT [id number] ROQUE HAMEED, SIN Khan MD at 0958 CC: [id number] DICTATION DATE: 11/30/19851 POST SECONDARY PROFESSIONAL: 11/30/19 0953 REG [facility] [address] [place] [address]
--- NOTE | 2019-11-30 13:28 | NUR ---
0390 UP TO BATHROOM. AMBULATORY WITHOUT DIFFICULTY. VOIDED URINE. UPON STANDING, PT STATES SOME OF PACKING FELL OUT & WAS IN TOILET BOWL & WATER. VERIFIED WITH DR. GARCIA THAT OKAY FOR PACKING TO BE REMOVED. PACKING WITH SOME BLODD NOTED & REMOVED. PERIPAD & NEW POST OP BRIEFS APPLIED. LUZ MARIA Bullard
--- NOTE | 2019-11-30 13:35 | NUR ---
1105 DRESSED. AWAKE & ALERT. GIVEN DISCHARGE INFORMATION INCLUDING: RX: NORCO 5/325MG, MED REC., RTC APPT., POST CYSTOSCOPY D/C INSTRUCTIONS & MC D/C INSTRUCTIONS. PT VOICED UNDERSTANDING. TO PRIVATE CARE PER WHEELCHAIR BY STAFF. HOME WITH PARENTS. Fernanda LEAL R.N.
== END 2019-11-30 11:05 | disposition home or self-care (01) ==
LOC: D.OPS 05:30
PROVIDERS: Anesthesiology; ATTEND Urology
DX: T83.24XA Erosion of graft of urinary organ, initial encounter (principal); R39.89 Other symptoms and signs involving the genitourinary system; N81.10 Cystocele, unspecified; F17.210 Nicotine dependence, cigarettes, uncomplicated

== ENCOUNTER → 2020-01-24 10:20 | Outpatient (CLI) | payer MEDICAID ==
[2019-11-30 06:21] VITALS: BMI 33.2
[~2020-01-24 10:20] MED LIST changes: +ATARAX 25 MG TA25 MG PO
== END | disposition home or self-care (01) ==
LOC: D.RAD 10:18
PROVIDERS: ATTEND Urology
DX: N20.1 Calculus of ureter (principal)

== ENCOUNTER 2020-02-03 08:05 | Day surgery (SDC) | payer MEDICAID ==
[~2020-02-03] VITALS: Ht 162.6 cm; Wt 87.5 kg
[~2020-02-03 08:05] MED LIST changes: +TYLENOL #4 W/CO1 TAB PO; +ZOFRAN4 MG PO
[2020-02-03 08:50] LABS: HEMATOCRIT 42.3 % (36.0-48.0); HEMOGLOBIN 14.7 g/dL (12-16); MCHC 34.8 g/dL (31.0-37.0); MEAN PLATELET VOLUME 10.1 fL (7.4-10.4); RBC 4.6 10x6/uL (4.00-5.40); RDW 12.4 % (11.5-14.5); WBC 9.9 10x3/uL (4.8-10.8)
[2020-02-03 08:54] VITALS: Ht 162.6 cm; Wt 87.5 kg
--- NOTE | 2020-02-03 09:10 | NUR ---
PT ASSESSED A MODERATE RISK. DR. GÓMEZ NOTIFED AND NO SITTER NEEDED AT THIS TIME. PT DENIES SI AND STATES THAT SHE HASN'T HAD ANY ISSUES IN YEARS. PT HAS A HX OF PTSD WHICH SHE IS ON MEDICATIONS FOR AND SHE SEES A THERAPIST. RESOURCES GIVEN AND PT VERABALIZED UNDERSTANDING.
--- NOTE | 2020-02-03 13:47 | NUR ---
VOIDED 200CC OF PINK URINE IN BEDPAN @1315
--- NOTE | 2020-02-03 14:45 | OP ---
PATIENT NAME: ROQUE HAMEED MEDICAL RECORD: [id number] :86 LOCATION:[facility] ADMISSION DATE: SURGEON: SIN GARCIA MD DATE OF OPERATION: 02/03/2020 SURGEON: Sin Garcia MD ANESTHESIA: General anesthesia by Vani Ashby CRNA DIAGNOSIS: A 5-mm right proximal ureteral stone. PROCEDURE: Right extracorporeal shockwave lithotripsy times 4000 shocks. FINDINGS: Radiodense right proximal ureteral stone. ESTIMATED BLOOD LOSS: None. CLINICAL HISTORY: This is a 34-year-old female with a previous history of kidney stones. She continues to have right-sided flank pain. CT scan shows a 5-mm stone lodged in the right proximal ureter. She comes to have this treated today. DESCRIPTION OF PROCEDURE: The patient was given IV antibiotics prior to the procedure. She was placed on the treatment table. We were able to visualize the stone and targeted in 2 planes. She was then given induction of general anesthesia. A 2000 shocks were given to the stone initially. It did not seem to visibly break up and so we decided to go ahead and give the full 4000 shocks. At the end of the case, the stone had started to break up. I will see her back in followup in 2 weeks' time with a KUB to determine if the stone has left the ureter. She did not want to have a ureteral stent inserted. TRANSINT:[id number] Voice Confirmation ID: [id number] DOCUMENT ID: [id number] SIN GARCIA MD at 1445 CC: [id number] DICTATION DATE: 02/03/20 1256 LOC[facility] PSYCHIATRIST: 02/03/20 1400 REG [facility] [address] [place] [address]
== END 2020-02-03 15:00 | disposition home or self-care (01) ==
LOC: D.OPS 08:05 → D.PAN 13:00 → D.OPS 15:00
PROVIDERS: Anesthesiology; ATTEND Urology
DX: N20.1 Calculus of ureter (principal); R10.2 Pelvic and perineal pain; Z72.0 Tobacco use; R39.89 Other symptoms and signs involving the genitourinary system

== ENCOUNTER → 2020-02-17 09:33 | Outpatient (CLI) | payer MEDICAID ==
[2020-02-03 08:54] VITALS: BMI 33.2
== END | disposition home or self-care (01) ==
LOC: D.RAD 09:33
PROVIDERS: ATTEND Urology
DX: Z09 Encounter for follow-up examination after completed treatment for conditions other than malignant neoplasm (principal)

== ENCOUNTER 2020-05-12 05:34 | Day surgery (SDC) | payer BC ==
[2020-05-10 16:24] LABS: BASOPHILS 0.3 % (0-2); EOSINOPHILS 0.8 % (0-7); HEMATOCRIT 39.5 % (36.0-48.0); HEMOGLOBIN 13.3 g/dL (12-16); IMMATURE GRANULOCYTES 0.1 % (0-5); LYMPHOCYTES 17.6 % (15-50); MCH 31.2 pg (26.0-34.0); MCHC 33.7 g/dL (31.0-37.0); MCV 92.7 fL (80.0-100.0); MEAN PLATELET VOLUME 10.3 fL (7.4-10.4); MONOCYTES 5.1 % (2-11); NEUTROPHILS 76.1 % (40-80); PLATELET COUNT 194 10x3/uL (130-400); RBC 4.26 10x6/uL (4.00-5.40); RDW 12.6 % (11.5-14.5); WBC 7.3 10x3/uL (4.8-10.8)
[~2020-05-12] VITALS: Ht 162.6 cm; Wt 87.5 kg
--- NOTE | ~2020-05-12 | OP ---
PATIENT NAME: ROQUE HAMEED MEDICAL RECORD: [id number] :86 LOCATION:[facility] ADMISSION DATE: SURGEON: REDDY LEDESMA MD DATE OF OPERATION: 05/12/2020 PREOPERATIVE DIAGNOSIS: Pelvic pain. POSTOPERATIVE DIAGNOSES: 1. Pelvic pain. 2. Findings consistent with endometriosis. SURGEON: Reddy Ledesma MD ANESTHESIA: General endotracheal. INTRAVENOUS FLUIDS: Per anesthesia record. PROCEDURE: Diagnostic laparoscopy. SPECIMENS: None. FINDINGS: Areas around the adnexa and peritoneal surfaces consistent with endometriosis. ESTIMATED BLOOD LOSS: Minimal. COMPLICATIONS: None apparent. DESCRIPTION OF PROCEDURE: The patient taken to the operating room where general anesthesia was achieved without difficulty. The patient was prepped and draped in normal sterile fashion in the dorsal supine position. SCDs were on and functioning normally. The bladder had been straight catheter approximately 100 cc of clear yellow urine. Following prep and drape, attention was turned to the umbilicus where a 5-mm incision was made in the inferior aspect of the umbilicus. A 5-mm bladeless trocar was then used to enter the intraperitoneal space under direct visualization of the laparoscope. The introducer was removed and the camera was placed into the pelvis. Intraperitoneal placement was again confirmed. A second 5-mm port was then placed in the midline approximately 5 cm superior to the pubic symphysis. Another 5-mm bladeless trocar was then used to enter the intraperitoneal space under direct visualization of the intraperitoneal laparoscope. Survey of the abdomen and pelvis was performed, at which point, the camera was removed and the patient was desufflated. The trocars were removed without difficulty. The skin was repaired with 3-0 Vicryl in an interrupted fashion. The patient tolerated the procedure well, transferred to postanesthesia recovery stable without incident. TRANSINT:[id number] Voice Confirmation ID: [id number] DOCUMENT ID: [id number] OPERATIVE REPORT [id number] ALEXANDRA HAMEEDYLA Arcelia REDDY LEDESMA MD CC: [id number] DICTATION DATE: 05/22/20 0544 SOFTWARE PROJECT LEAD: 05/22/[address] [facility] 05/12/20 [id number] [place] [address]
[~2020-05-12 05:34] MED LIST changes: +MYRBETRIQ25 MG PO
[2020-05-12 05:53] VITALS: BP 114/78; BMI 33.2
[2020-05-12 06:24] VITALS: Ht 162.6 cm; Wt 87.5 kg
--- NOTE | 2020-05-12 06:24 | NUR ---
DR GÓMEZ NOTIFIED AND REVIEWED PT's BEHAVIOR AND ASSESSMENT RESULTS. PT IS A LOW RISK PER DR GÓMEZ. DR GÓMEZ STATED TO GIVE RESOURCES TO PT AT TIME OF DISCHARGE. NO FURTHER ORDERS AT THIS TIME. RESOURCES REVIEWED WITH PT AND SHE VERBALIZED UNDERSTANDING.
--- NOTE | 2020-05-12 08:15 | NUR ---
PT STATED NO NEED TO CONTACT FAMILY, AT WORK AND MOTHER WILL BE HERE LATER.
--- NOTE | 2020-05-12 10:08 | NUR ---
0955-RECD TO ROOM FROM PACU. ALERT, RESP WITH EASE. RATES PAIN AT 5 AFTER TORADOL, DEMEROL AND DILAUDID IN PACU. O2 SAT 99% ON ROOM AIR. STEP MOM AT BEDSIDE. TOLERATES LIQUIDS BY MOUTH WITHOUT NAUSEA.
--- NOTE | 2020-05-12 11:07 | NUR ---
1035 IV REMOVED AND INSTRUCTIONS GIVEN. PT HAS A RX AND A POST OP APT
== END 2020-05-12 11:00 | disposition home or self-care (01) ==
LOC: D.OPS 05:34 → D.PAN 07:30 → D.OPS 11:00
PROVIDERS: ATTEND Obstetrics & Gynecology
DX: R10.2 Pelvic and perineal pain (principal); N83.209 Unspecified ovarian cyst, unspecified side; K82.8 Other specified diseases of gallbladder; I10 Essential (primary) hypertension; N30.10 Interstitial cystitis (chronic) without hematuria; F32.9 Major depressive disorder, single episode, unspecified; K21.9 Gastro-esophageal reflux disease without esophagitis; G62.9 Polyneuropathy, unspecified; Z72.0 Tobacco use

== ENCOUNTER → 2020-05-30 11:14 | Outpatient (CLI) | payer BC ==
[2020-05-12 06:24] VITALS: BMI 33.2
[2020-05-30 12:05] LABS: ALBUMIN 3.8 g/dL (3.4-5.0); BILIRUBIN - DIRECT 0.16 mg/dL (0.00-0.30); BILIRUBIN - INDIRECT 0.6 mg/dL (0.00-1.00); BILIRUBIN - TOTAL 0.76 mg/dL (0.2-1.3)
== END | disposition home or self-care (01) ==
LOC: D.US 11:14
PROVIDERS: ATTEND Internal Medicine Gastroenterology
DX: K76.0 Fatty (change of) liver, not elsewhere classified (principal)

== ENCOUNTER → 2021-05-25 11:09 | Outpatient (CLI) | payer BC ==
[2020-05-12 06:24] VITALS: BMI 33.2
[2021-05-25 11:52] LABS: ALBUMIN 3.7 g/dL (3.4-5.0); BILIRUBIN - DIRECT 0.09 mg/dL (0.00-0.30); BILIRUBIN - INDIRECT 0.17 mg/dL (0.00-1.00); BILIRUBIN - TOTAL 0.26 mg/dL (0.2-1.3); PROTEIN - SERUM 6.8 g/dL (6.4-8.2)
== END | disposition home or self-care (01) ==
LOC: D.US 05-24 11:00
PROVIDERS: ATTEND Internal Medicine Gastroenterology
DX: K76.0 Fatty (change of) liver, not elsewhere classified (principal)